=== PATIENT | female | born 1970 | race Caucasian/White ===

== ENCOUNTER → 2024-07-01 | Outpatient (CLI) | payer BC ==
[~2024-07-01] MED LIST: AMIT25TA19 PO; BUSP15TA52 OR; BUSPAR PO; CLON-1004 OR; DOCU-94 OR; FLUT250M2 IN; PRILOSEC; PRISTIQ PO; PROMETHAZINE PO; PROVENTIL; SINGULAIR PO; TEMA30CA5 OR; [UNRECOGNIZED DRUG - CODE]
[2024-07-01 12:44] LABS: Potassium 3.8 mmol/L (3.5-5.1)
[2024-07-01 12:45] LABS: Anion Gap 10 (5-15); Calcium 10.4 mg/dL (8.7-10.4); Carbon Dioxide 27 mmol/L (20-31)
[2024-07-01 12:49] LABS: Chloride 97 mmol/L (98-107); Sodium 134 mmol/L (136-145)
[2024-07-01 12:50] LABS: BUN/Creatinine Ratio 12.9 (10.0-20.0); Blood Urea Nitrogen 18 mg/dL (9-23); Glucose 103 mg/dL (74-106)
== END | disposition home or self-care (01) ==
LOC: LAB 11:49
PROVIDERS: ATTEND Internal Medicine
DX: N17.9 Acute kidney failure, unspecified (principal)
CPT/HCPCS: 36415; 80048

== ENCOUNTER → 2024-07-08 | Outpatient (CLI) | payer BC ==
[2024-07-08 08:51] LABS: Alanine Aminotransferase 43 U/L (7-40); Albumin 4.7 g/dL (3.2-4.8); Alkaline Phosphatase 142 U/L (46-116); Anion Gap 10 (5-15); Aspartate Aminotransferase 73 U/L (13-40); BUN/Creatinine Ratio 17.1 (10.0-20.0); Blood Urea Nitrogen 22 mg/dL (9-23); Calcium 10.8 mg/dL (8.7-10.4); Carbon Dioxide 27 mmol/L (20-31); Chloride 98 mmol/L (98-107); Sodium 135 mmol/L (136-145); Total Protein 8.2 g/dL (5.7-8.2)
[2024-07-08 08:54] LABS: Bilirubin, Total 1.3 mg/dL (0.2-1.0)
[2024-07-08 09:04] LABS: Glucose 130 mg/dL (74-106)
== END | disposition home or self-care (01) ==
LOC: LAB 08:18
PROVIDERS: ATTEND Internal Medicine
DX: N17.9 Acute kidney failure, unspecified (principal)
CPT/HCPCS: 36415; 80053